=== PATIENT | male | born 1945 | race Caucasian/White ===

== ENCOUNTER 2019-09-24 10:11 | Day surgery (SDC) | payer MEDICARE ==
[~2019-09-24] VITALS: Ht 175.3 cm; Wt 78.2 kg
[2019-09-24] VITALS (10 sets, daily range): BP systolic 141–166; BP diastolic 63–96
[2019-09-24] MEDS ORDERED: normal saline 1,000 ML IV SCH (10:30)
[2019-09-24] MEDS ORDERED: diphenhydrAMINE 25mg capsule PO PRN (10:30)
[2019-09-24 10:55] LABS: BASOPHILS % (AUTO) 0.6 % (0-1); EOSINOPHILS # (AUTO) 0.2 X10'3 (0-0.9); EOSINOPHILS % (AUTO) 3.1 % (0-6); HEMATOCRIT 46.1 % (42.0-52.0); LYMPHOCYTES # (AUTO) 1.4 X10'3 (1.1-4.8); LYMPHOCYTES % (AUTO) 21.3 % (21-51); MEAN CORPUSCULAR HEMOGLOBIN 33.2 PG (27.0-31.0); MEAN CORPUSCULAR HGB CONC 34.6 g/dL (33.0-36.5); MEAN CORPUSCULAR VOLUME 95.9 FL (78-98); MEAN PLATELET VOLUME 9.5 FL (7.4-10.4); MONOCYTES # (AUTO) 0.7 X10'3 (0-0.9); MONOCYTES % (AUTO) 10.6 % (2-12); NEUTROPHILS # (AUTO) 4.3 X10'3 (1.8-7.7); NEUTROPHILS % (AUTO) 64.4 % (42-75); PLATELET COUNT 144 X10'3 (140-440); RED BLOOD COUNT 4.81 X10'6 (4.70-6.10); RED CELL DISTRIBUTION WIDTH 13.2 % (11.5-14.5); WHITE BLOOD COUNT 6.6 X10'3 (4.5-11.0)
[2019-09-24 10:56] LABS: ALBUMIN 4.2 G/DL (3.4-5.0); ANION GAP 10 (8-16); BLOOD UREA NITROGEN 11 MG/DL (7-18); BUN/CREATININE RATIO 10.1 (5.4-32.0); CALCIUM 8.3 MG/DL (8.5-10.1); CHLORIDE 105 MMOL/L (99-107); CREATININE 1.09 MG/DL (0.60-1.10); GLUCOSE 154 MG/DL (70-104); MAGNESIUM 1.9 MG/DL (1.5-2.4); POTASSIUM 3.9 MMOL/L (3.5-5.1); SODIUM 141 MMOL/L (135-145); eGFR 66 ML/MIN
[2019-09-24] MEDS ORDERED: ATOR40TA PO (11:51)
[2019-09-24] MEDS ORDERED: POTA10TA36 PO (11:51)
[2019-09-24] MEDS ORDERED: PANT40TA4 PO (11:51)
[2019-09-24] MEDS ORDERED: CARV-50 PO (11:51)
[2019-09-24] MEDS ORDERED: LISI-604 PO (11:51)
[2019-09-24] MEDS ORDERED: NITR0.4T48 SL (11:51)
[2019-09-24] MEDS ORDERED: ASPI-612 PO (11:51)
[2019-09-24] MEDS ORDERED: CLOP75TA33 PO (11:51)
[2019-09-24] MEDS ORDERED: iohexol 350 MG/ML 50ML vial IV ONE (12:56)
[2019-09-24] MEDS ORDERED: LIDOcaine 1% (10mg/ml)w/preservative injection 20ml MDV ONE (12:56)
[2019-09-24] MEDS ORDERED: fentaNYL/PF 50MCG/1 ML 2ML syringe ONE ×2 (12:56→13:34)
[2019-09-24] MEDS ORDERED: iohexol 350MG/ML 100ml bottle IV ONE ×3 (12:56→13:49)
[2019-09-24] MEDS ORDERED: midazolam 2 mg/2 ml injection ONE ×2 (12:56→13:18)
[2019-09-24] MEDS ORDERED: heparin 1,000unit/ml 10ml vial 10 ML ONE (13:24)
[2019-09-24] MEDS ORDERED: nitroGLYCERIN-Tridil 50MG/D5W 250 ML IV ONE (13:50)
[2019-09-24] MEDS ORDERED: clopidogrel 300mg tablet ONE (14:08)
[2019-09-24] MEDS ORDERED: ketorolac tromethamine 15mg/ml inj. IV STA (15:08)
== END 2019-09-24 17:55 | disposition home or self-care (01) ==
LOC: SSTAY O 10:11
PROVIDERS: ATTEND Internal Medicine Cardiovascular Disease
DX: I25.110 Atherosclerotic heart disease of native coronary artery with unstable angina pectoris (principal); I25.2 Old myocardial infarction; I10 Essential (primary) hypertension; E78.5 Hyperlipidemia, unspecified; K21.9 Gastro-esophageal reflux disease without esophagitis; Z79.01 Long term (current) use of anticoagulants; Z79.899 Other long term (current) drug therapy; Z95.5 Presence of coronary angioplasty implant and graft; Z72.89 Other problems related to lifestyle; Z88.8 Allergy status to other drugs, medicaments and biological substances
CPT/HCPCS: 36415; 80048; 83735; 85025; 85610; 93005; 93458; 99152; 99153; C1725; C1769; C1874; C1894; C9600; J1644; J1885; J2001; J2250; J3010; J7030; Q0163; Q9967; A4620; A6258; C1760; J3490

== ENCOUNTER 2019-09-25 18:26 | Emergency (ER) | payer MEDICARE ==
[~2019-09-25] VITALS: Ht 172.7 cm; Wt 77.3 kg
[~2019-09-25 18:26] MED LIST: ASPI-612 PO; ATOR40TA PO; CARV-50 PO; CLOP75TA33 PO; LISI-604 PO; NITR0.4T48 SL; PANT40TA4 PO; POTA10TA36 PO
[2019-09-25 18:34] VITALS: BP 147/81
== END 2019-09-25 21:28 | disposition home or self-care (01) ==
LOC: ER 18:27
DX: S30.1XXA Contusion of abdominal wall, initial encounter (principal); G89.18 Other acute postprocedural pain; L76.22 Postprocedural hemorrhage of skin and subcutaneous tissue following other procedure; I25.10 Atherosclerotic heart disease of native coronary artery without angina pectoris; I10 Essential (primary) hypertension; I25.2 Old myocardial infarction; F10.99 Alcohol use, unspecified with unspecified alcohol-induced disorder; Z95.818 Presence of other cardiac implants and grafts; Z79.82 Long term (current) use of aspirin; Z79.899 Other long term (current) drug therapy; X58.XXXA Exposure to other specified factors, initial encounter; Y93.89 Activity, other specified; Y92.89 Other specified places as the place of occurrence of the external cause; Y99.8 Other external cause status; Y90.9 Presence of alcohol in blood, level not specified
CPT/HCPCS: 99281; 99282

== ENCOUNTER 2020-05-19 09:01 | Day surgery (SDC) | payer MEDICARE ==
[2020-05-19] VITALS (9 sets, daily range): BP systolic 122–158; BP diastolic 73–83
[~2020-05-19] VITALS: Ht 175.3 cm; Wt 79.6 kg
[2020-05-19] MEDS ORDERED: normal saline 1000ml 1,000 ML IV SCH (09:25)
[2020-05-19] MEDS ORDERED: CARV6.253 PO (10:10)
[2020-05-19] MEDS ORDERED: ROSU40TA PO (10:10)
[2020-05-19] MEDS ORDERED: VALS160T2 PO (10:10)
[2020-05-19] MEDS ORDERED: HYDR12.55 PO (10:10)
--- NOTE | 2020-05-19 10:23 | NUR ---
GIVEN ALBUMIN 25% 100ML VIA IV Addendum: 05/19/20 at 1444 by Zakia Kendall RN DISREGARD ABOVE MESSAGE. NOT REGARDING "GIVEN ALBUMIN 25% 100ML VIA IV" WAS FOR ANOTHER PATIENT. NOT THIS PATIENT
[2020-05-19 10:29] LABS: BASOPHILS % (AUTO) 0.5 % (0-1); EOSINOPHILS # (AUTO) 0.3 X10'3 (0-0.9); EOSINOPHILS % (AUTO) 3.8 % (0-6); HEMATOCRIT 48.7 % (42.0-52.0); HEMOGLOBIN 16.2 g/dl (14.0-17.9); LYMPHOCYTES # (AUTO) 1.6 X10'3 (1.1-4.8); LYMPHOCYTES % (AUTO) 21.7 % (21-51); MEAN CORPUSCULAR HEMOGLOBIN 31.1 PG (27.0-31.0); MEAN CORPUSCULAR HGB CONC 33.3 g/dL (33.0-36.5); MEAN CORPUSCULAR VOLUME 93.5 FL (78-98); MEAN PLATELET VOLUME 9.3 FL (7.4-10.4); MONOCYTES # (AUTO) 0.7 X10'3 (0-0.9); MONOCYTES % (AUTO) 9.3 % (2-12); NEUTROPHILS # (AUTO) 4.6 X10'3 (1.8-7.7); NEUTROPHILS % (AUTO) 64.7 % (42-75); PLATELET COUNT 160 X10'3 (140-440); RED BLOOD COUNT 5.21 X10'6 (4.70-6.10); RED CELL DISTRIBUTION WIDTH 14.3 % (11.5-14.5); WHITE BLOOD COUNT 7.2 X10'3 (4.5-11.0)
[2020-05-19 10:36] LABS: ALBUMIN 4.4 G/DL (3.4-5.0); ANION GAP 10 (8-16); BLOOD UREA NITROGEN 20 MG/DL (7-18); BUN/CREATININE RATIO 16.3 (5.4-32.0); CALCIUM 8.8 MG/DL (8.5-10.1); CHLORIDE 105 MMOL/L (99-107); CREATININE 1.23 MG/DL (0.60-1.10); GLUCOSE 186 MG/DL (70-104); POTASSIUM 4.3 MMOL/L (3.5-5.1); SODIUM 141 MMOL/L (135-145); eGFR 58 ML/MIN
[2020-05-19] MEDS ORDERED: fentaNYL/PF 50MCG/1 ML 2ML syringe ONE ×2 (10:59→11:54)
[2020-05-19] MEDS ORDERED: vancomycin 1,000mg inj ONE (10:59)
[2020-05-19] MEDS ORDERED: midazolam 2 mg/2 ml injection ONE ×5 (10:59→12:58)
[2020-05-19] MEDS ORDERED: LIDOcaine 1% W/epiNEPHrine 1:100,000 20ml vial ONE ×2 (11:00→11:53)
[2020-05-19] MEDS ORDERED: iohexol 350 MG/ML 50ML vial IV ONE (11:00)
[2020-05-19] MEDS ORDERED: ceFAZolin 1000mg inj ONE (11:00)
[2020-05-19] MEDS ORDERED: proCHLORperazine 10 MG/2 ml inj ONE (11:54)
--- NOTE | 2020-05-19 14:20 | NUR ---
DR. BEDOYA NOTIFIED OF MESSAGE AND REPORT GIVEN BY DR. ISABELL RODRIGUEZ REGARDING POST PROCEDURE SINGLE FRONTAL VIEW CHEST X RAY. NO NEW ORDERS GIVEN BY DR. BEDOYA IN REGARDS TO RADIOLOGY REPORT., STATING "DO NOT WORRY ABOUT IT". VITAL SIGNS ARE STABLE WITH O2 SAT 94-95%. DENIES SOB.
== END 2020-05-19 15:30 | disposition home or self-care (01) ==
LOC: SSTAY O 09:01
PROVIDERS: ATTEND Internal Medicine Cardiovascular Disease
DX: I25.5 Ischemic cardiomyopathy (principal); I44.7 Left bundle-branch block, unspecified; I25.118 Atherosclerotic heart disease of native coronary artery with other forms of angina pectoris; I25.2 Old myocardial infarction; I10 Essential (primary) hypertension; E78.5 Hyperlipidemia, unspecified; K21.9 Gastro-esophageal reflux disease without esophagitis; G47.30 Sleep apnea, unspecified; I45.89 Other specified conduction disorders; Z98.890 Other specified postprocedural states; Z95.5 Presence of coronary angioplasty implant and graft; Z79.01 Long term (current) use of anticoagulants; Z79.899 Other long term (current) drug therapy; Z79.82 Long term (current) use of aspirin; Z72.89 Other problems related to lifestyle; Z88.8 Allergy status to other drugs, medicaments and biological substances
CPT/HCPCS: 33225; 33249; 36415; 71045; 80048; 83735; 85025; 85610; 93005; 99152; 99153; C1769; C1882; C1887; C1894; C1895; C1900; J0690; J0780; J2250; J3010; J3370; J7030; J7050; Q9967; A4565; A4620